=== PATIENT | male | born 1985 | race Caucasian/White ===

== ENCOUNTER 2024-12-25 19:23 | Outpatient (REF) | payer MEDICAID, SELFPAY ==
[2024-12-25 19:07] LABS: Abs Immature Grans 0.04 10^3/uL (0.0-0.06); HCT 40.7 % (40.0-50.0); HGB 13.6 g/dL (13.5-17.5); Immature Grans % 0.3 %; MCH 30.4 pg (27.0-33.0); MCHC 33.4 % (32.0-36.0); MCV 91 fL (80-95); MPV 10.7 fL (8.0-11.0); Platelet Count 298 10^3/uL (130-400); RBC 4.48 10^6/uL (4.36-5.78); RDW 14.3 % (11.8-14.1); RDW-SD 47.9 fL; WBC 14.66 10^3/uL (4.4-10.8)
[2024-12-25 19:22] LABS: Hemoglobin A1C 5.3 % (<5.7)
[2024-12-25 19:28] LABS: Cannabinoids THC Positive (Negative); METHADONE URINE SCREEN Negative (Negative)
[2024-12-25 20:06] LABS: ALT 22 U/L (16-63); AST 17 U/L (15-37); Albumin 4.4 g/dL (3.4-5.0); Alkaline Phosphatase 58 U/L (46-116); Anion Gap 10.5 mmol/L (3-11); BUN 10 mg/dL (7-18); Bilirubin, Total 0.6 mg/dL (0.2-1.0); CO2 28.5 mmol/L (21.0-32.0); Calcium 9.5 mg/dL (8.5-10.1); Chloride 101 mmol/L (98-107); Estimated GFR 112.11 (mL/min/1.73m2); Glucose 72 mg/dL (74-106); Potassium 4.0 mmol/L (3.5-5.1); Sodium 140 mmol/L (136-145); TSH (W/Ref FT4) 0.65 uIU/mL (0.36-3.74); Total Protein 7.3 g/dL (6.4-8.2); Vitamin B12 978 pg/mL (193-986); Vitamin D 25 Total 59 ng/mL (30-100)
[2024-12-26 20:15] LABS: HIV-1/2 Ag & Ab Screen Negative (Negative)
[2024-12-26 20:23] LABS: Hepatitis A Antibody IgM Negative (Negative); Hepatitis C Ab w Rflx HCV PCR Reactive (Negative)
== END 2024-12-25 19:24 | disposition home or self-care (01) ==
LOC: LBN 19:23
PROVIDERS: Visit Provider Registered Nurse
DX: F11.10 Opioid abuse, uncomplicated; F19.20 Other psychoactive substance dependence, uncomplicated; Z79.899 Other long term (current) drug therapy; Z51.81 Encounter for therapeutic drug level monitoring; R63.4 Abnormal weight loss; F06.34 Mood disorder due to known physiological condition with mixed features
CPT/HCPCS: 80053; 80307; 80360; 82306; 86704; 86709; 86803; 87340; 87389; 87522; 80320; 82607; 83036; 84443; 85025